=== PATIENT | male | born 1990 | race Native Hawaiian/Other Pacific Islander ===

== ENCOUNTER 2018-03-05 02:07 | Emergency (ER) | payer OTHER ==
[~2018-03-05] VITALS: Ht 167.6 cm; Wt 80.3 kg
[2018-03-05 03:00] VITALS: BP 123/87; TEMP 98.6
== END 2018-03-05 03:00 | disposition home or self-care (01) ==
LOC: ED 02:07
DX: L73.8 Other specified follicular disorders (principal); S66.911A Strain of unspecified muscle, fascia and tendon at wrist and hand level, right hand, initial encounter
CPT/HCPCS: 99281